=== PATIENT | male | born 1965 | race Caucasian/White ===

== ENCOUNTER 2023-10-04 18:29 | Emergency (ER) | payer OTHER, SELFPAY ==
[2023-10-04 18:32] VITALS: BP 165/98; PULSE 85; RESP 16; TEMP 37.2; O2SAT 97; BMI 25.0
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
--- NOTE | 2023-10-04 19:14 | PC.NURSE ---
Addendum entered by Reyes Zhou R.N. 10/04/23 19:16: Pt's head laceration bleeding is controlled, no gauz in place. Original Note: I introduced myself to patient, patient asks when the doctor is going to show up and how long this is going to take. Pt informed he has only been here a half hour and the doctor is coming as soon as possible. I asked patient if he had a headache, pt responds Well ofcourse! while shaking his head. Pt informed to call if he needs anything while waiting for provider.
--- NOTE | 2023-10-04 19:38 | PC.NURSE ---
Pt walked up to nurse's station stating in a clear voice, Should I just come back to the ED when your less busy. I've been waiting too long. This RN explained to the patient that he has been seen by a provider and evaluated nurses and that his care is continuing despite despite ED staff treating other patients simultaneously. Pt responds by saying he doesn't want to wait any longer and wants to go. This RN educated the patient on the risk of leaving prior to completion of his care. Pt returned to room with steady gait. Pt's head laceration is not bleeding.
--- NOTE | 2023-10-04 19:40 | PC.NURSE ---
Patient at nurses station and agitated about waiting to see ED provider. Patient states maybe I should just come back when I don't have to wait. Multiple attempts to explain to patient regarding evaluation by provider and suggested that it is recommended to stay for evaluation. Patient continues to talk under his breath. Patient walked back to room, Dr. William informed.
[2023-10-04 20:49] VITALS: BP 182/101; PULSE 73; RESP 18; TEMP 37.2; O2SAT 99
== END 2023-10-04 20:50 | disposition home or self-care (01) ==
PROVIDERS: Emergency Provider Emergency Medicine
DX: S01.02XA Laceration with foreign body of scalp, initial encounter (principal); W22.8XXA Striking against or struck by other objects, initial encounter; Y92.814 Boat as the place of occurrence of the external cause
CPT/HCPCS: 12034; 99281; 99283